=== PATIENT | male | born 1960 | race Hispanic/Latino ===

== ENCOUNTER 2017-09-14 10:32 | Outpatient (CLI) | payer BC | END 2017-09-14 10:33 | disposition home or self-care (01) | LOC: BICRAD 10:32 | PROVIDERS: ATTEND Physician Assistant Medical | DX: L40.0 Psoriasis vulgaris (principal) | CPT/HCPCS: 71046 ==

== ENCOUNTER 2018-08-16 11:04 | Outpatient (CLI) | payer BC ==
--- NOTE | 2018-08-16 11:22 | RAD ---
FEXAM: Chest PA and lateral: HISTORY: Positive TB test COMPARISON: 11/05/2004 FINDINGS: Heart: Normal Aorta: Unremarkable Pulmonary vessels: Normal Costophrenic angles: Costophrenic angles are clear. Lungs: No consolidation or masses. Pneumothorax: No pneumothorax Osseous structures: Normal IMPRESSION: No acute cardiopulmonary process.
== END 2018-08-16 11:05 | disposition home or self-care (01) ==
LOC: BICRAD 11:04
PROVIDERS: ATTEND Nurse Practitioner Family
DX: R76.12 Nonspecific reaction to cell mediated immunity measurement of gamma interferon antigen response without active tuberculosis (principal)
CPT/HCPCS: 71046

== ENCOUNTER 2021-02-26 11:41 | Outpatient (CLI) | payer BC | END 2021-02-26 11:42 | disposition home or self-care (01) | LOC: BICRAD 11:41 | PROVIDERS: ATTEND Nurse Practitioner Family | DX: M54.9 Dorsalgia, unspecified (principal); M47.816 Spondylosis without myelopathy or radiculopathy, lumbar region | CPT/HCPCS: 72100 ==